=== PATIENT | female | born 1980 | race Caucasian/White ===

== ENCOUNTER 2019-06-23 14:35 | Emergency (ER) | payer OTHER ==
[~2019-06-23] VITALS: Ht 157.5 cm; Wt 68.5 kg
[2019-06-23 14:37] VITALS: BP 138/92
--- NOTE | 2019-06-23 14:45 | NUR ---
PT AMBULATED TO ER BED 09
[2019-06-23] MEDS ORDERED: NACL 0.9% 1,000 ML IV ONE (14:55)
[2019-06-23] MEDS ORDERED: ONDANSETRON 4 MG/2 ML VIAL IVP ONE (14:55)
--- NOTE | 2019-06-23 14:56 | NUR ---
Kevin carcamo in ED - 06/23/19 at 1509 by [facility] PT AMBULATED TO ER BED 09
[2019-06-23 15:16] LABS: BASOPHILS % (AUTO) 0.3 % (0.0-2.0); EOSINOPHILS % (AUTO) 0.6 % (0.0-4.0); HEMATOCRIT 43.6 % (36-48); HEMOGLOBIN 14.4 g/dL (12.0-16.0); LYMPHOCYTES # (AUTO) 0.8 K/uL (2.5-16.5); LYMPHOCYTES % (AUTO) 11.4 % (20.5-51.1); MEAN CORPUSCULAR HEMOGLOBIN 29 pg (27-31); MEAN CORPUSCULAR HGB CONC 33 g/dL (33-37); MEAN CORPUSCULAR VOLUME 87.2 fL (80-94); MONOCYTES # (AUTO) 0.7 K/uL (0.8-1.0); MONOCYTES % (AUTO) 9.6 % (1.7-9.3); NEUTROPHILS # (AUTO) 5.3 K/uL (1.8-7.7); NEUTROPHILS % (AUTO) 78.1 % (42.2-75.2); PLATELET COUNT (AUTO) 285 K/uL (140-450); RED CELL DISTRIBUTION WIDTH 13.8 % (11.6-13.7); WHITE BLOOD COUNT (AUTO) 6.8 K/uL (4.8-10.8)
--- NOTE | 2019-06-23 15:24 | NUR ---
PT GOING TO XRAY VIA WHEELCHAIR
--- NOTE | 2019-06-23 15:30 | NUR ---
39 Y/O FEMALE PRESENTS TO THE ER WITH C/O HEADACHE X 7 DAYS, DIZZINESS X 2 DAYS, ABDOMINAL PAIN, NAUSEA, DIARRHEA X 4 DAYS. PT STATES NO APPETITE. LMP 06/13/19. STATES SOB WHEN WALKING. BILATERAL LUNG CTA R/R EQUAL, AND UNLABORED. NO FEVER, OR COUGH NOTED. LAST TOOK ADVIL AT 1300. LAYING QUIETLY IN BED. WILL CONTINUE TO MONITOR. SIDE RAIL X 1 DENIES PMH NKDA
--- NOTE | 2019-06-23 15:31 | NUR ---
PT REUTNED FROM CT Addendum: 06/23/19 at 1531 by [email or web address] XRAY
[2019-06-23 15:35] LABS: ALBUMIN 3.9 g/dL (3.4-5.0); ANION GAP 11.6 (8-16); CARBON DIOXIDE 28.9 mmol/L (21-32); CREATININE 0.8 mg/dL (0.6-1.3); POTASSIUM 3.5 mmol/L (3.5-5.1); TOTAL BILIRUBIN 0.2 mg/dL (0.0-1.0)
--- NOTE | 2019-06-23 15:59 | NUR ---
DR SIDDIQUI AT BEDSIDE RE-EVALUATING
--- NOTE | 2019-06-23 16:00 | NUR ---
PT AMB TO RESTROOM WITH STEADY GAIT
[2019-06-23 16:06] VITALS: BP 138/92
== END 2019-06-23 16:06 | disposition home or self-care (01) ==
LOC: MED 14:35
DX: R10.9 Unspecified abdominal pain (principal); R11.0 Nausea; R42 Dizziness and giddiness; G43.909 Migraine, unspecified, not intractable, without status migrainosus
CPT/HCPCS: 36415; 74022; 80053; 81002; 81025; 85025; 96361; 96374; 99284; J2405; J7030

== ENCOUNTER 2019-12-12 16:36 | Emergency (ER) | payer OTHER ==
[~2019-12-12] VITALS: Ht 157.5 cm; Wt 63.5 kg
--- NOTE | 2019-12-12 16:40 | NUR ---
PT AMBULATED TO ER BED 10
[2019-12-12 16:45] VITALS: BP 135/72
--- NOTE | 2019-12-12 16:45 | NUR ---
39 Y/O F C/C LOWER BACK PAIN X 1 DAY. PER PT CRAMPING SENSATION, 10/10 PAIN, NON RADIATING, SITTING/ACTIVITY EXACERBATES, NOTHING ALLEVIATES. PT TAKEN OTC RX WITH NO RELIEF. NKA. NO HX. NO RX. NO SX. NO NVD. SIDE RAIL X1.
--- NOTE | 2019-12-12 16:54 | NUR ---
PT AMBULATED TO RESTROOM, STEADY GAIT
--- NOTE | 2019-12-12 18:35 | NUR ---
PT RESTING IN BED, SIDE RAIL X1
[2019-12-12 18:48] LABS: APPEARANCE,URINE HAZY (CLEAR); BILIRUBIN,URINE NEGATIVE (NEGATIVE); BLOOD, URINE 3+ (NEGATIVE); COLOR,URINE YELLOW (YELLOW); LEUKOCYTE ESTERASE ,URINE NEGATIVE (NEGATIVE); NITRITE, URINE NEGATIVE (NEGATIVE); UGLUCOSE NEGATIVE (NEGATIVE)
[2019-12-12] MEDS ORDERED: KETOROLAC 30 MG/ML VIAL IM ONE (18:50)
[2019-12-12 18:53] LABS: RBC,URINE 11-20 (MOD) /HPF (0-5); WBC,URINE 0-5 /HPF (0-5)
[2019-12-12] MEDS ORDERED: KETOROLAC 30 MG/ML VIAL ONE (18:59)
--- NOTE | 2019-12-12 19:04 | NUR ---
TORADOL ADMINISTED 30MG , LEFT DELTOID AREA. PER ERMD ORDERS. ERMD NOTIFIED. NO ALLERGIC REACTION TO MEDICATION NOTED.
[2019-12-12 19:05] VITALS: BP 130/68
--- NOTE | 2019-12-12 19:05 | NUR ---
Patient discharged with v/s stable. Written and verbal after care instructions given and explained. Patient alert, oriented and verbalized understanding of instructions. Ambulatory with steady gait. All questions addressed prior to discharge. ID band removed. Patient advised to follow up with PMD. Rx of FLEXERIL,TORADOL given. Patient educated on indication of medication including possible reaction and side effects. Opportunity to ask questions provided and answered.
--- NOTE | 2019-12-16 10:54 | NUR ---
Urine culture received from lab. Culture and sensitivity received and shown to Dr. Arriaga. New Rx for Keflex 500mg BID x 14 days received. Patient called and no answer, voicemail was left for patient to return phone call.
== END 2019-12-12 19:05 | disposition home or self-care (01) ==
LOC: MED 16:36
DX: M54.5 Low back pain (principal); G89.29 Other chronic pain
CPT/HCPCS: 81001; 81025; 87086; 87186; 96372; 99283; J1885

== ENCOUNTER 2019-12-16 11:22 | Emergency (ER) | payer OTHER ==
[~2019-12-16] VITALS: Ht 157.5 cm; Wt 65.8 kg
[2019-12-16 11:25] VITALS: BP 128/97
--- NOTE | 2019-12-16 11:30 | NUR ---
PT C/O RIGHT-SIDED MID BACK PAIN ACCOMPANIED BY MILD DRY COUGH FOR 5 DAYS. PT DESCRIBED THE PAIN IS CARMPING-LIKE AND EXACERBATED BY MOVEMENT. PT DENIES FEVER, CHILLS, SOB, CP, N/V/D, SICK CONTACTS, ADBOMINAL PAIN, OR INJURY TO THE BACK OR OTHER BODY AREA, OR EXCESSIVE EXERSICE. PT WAS SEEN ON 12/12/2019 IN OUR ER AND TX WITH TORADOL AND MUSCLE RELAXANT WITHOUT ANY RELIEF.
[2019-12-16] MEDS ORDERED: IBUPROFEN 800 MG TAB PO ONE (11:45)
--- NOTE | 2019-12-16 12:05 | NUR ---
Patient taken to CT scan via wheelchair by tech.
[2019-12-16 13:26] VITALS: BP 110/90
--- NOTE | 2019-12-16 13:26 | NUR ---
Patient discharged with v/s stable. Written and verbal after care instructions given and explained. Patient alert, oriented and verbalized understanding of instructions. Ambulatory with steady gait. All questions addressed prior to discharge. ID band removed. Patient advised to follow up with PMD. Rx of Keflex 500mg, Motrin 800mg, Tramadol 50mg given. Patient educated on indication of medication including possible reaction and side effects. Opportunity to ask questions provided and answered.
== END 2019-12-16 13:26 | disposition home or self-care (01) ==
LOC: MED 11:22
DX: N39.0 Urinary tract infection, site not specified (principal); M54.5 Low back pain
CPT/HCPCS: 81002; 81025; 99284